=== PATIENT | female | born 1990 | race Caucasian/White ===

== ENCOUNTER → 2024-12-02 15:03 | Outpatient (REF) | payer BC, SELFPAY | LOC: DHSLP 15:03 | PROVIDERS: ATTENDING PHYSICIAN Internal Medicine Critical Care Medicine; FAMILY PHYSICIAN Nurse Practitioner Family | DX: G47.33 Obstructive sleep apnea (adult) (pediatric) (principal) | CPT/HCPCS: 95800 ==